=== PATIENT | male | born 1980 | race Two or more races ===

== ENCOUNTER 2019-05-21 19:08 | Emergency (ER) | payer SELFPAY ==
[~2019-05-21] VITALS: Ht 167.6 cm; Wt 110.2 kg
[2019-05-21 19:30] VITALS: BP 189/107
[2019-05-21] MEDS ORDERED: ORPHENADRINE CITRATE 60 MG/2 ML VIAL. IM ONE (19:45)
[2019-05-21] MEDS ORDERED: KETOROLAC 60 MG/2 ML VIAL. IM ONE (19:45)
[2019-05-21] MEDS ORDERED: NAPR-514 PO (20:14)
[2019-05-21] MEDS ORDERED: ORPH100T PO (20:14)
--- NOTE | 2019-05-21 20:14 | PHYS DOC ---
Past Medical History Past Medical History: Hypertension (JOHANNY MONTANEZ APRN) Past Surgical History: No Surgical History (JOHANNY MONTANEZ APRN) Alcohol Use: Occasionally Drug Use: None (JOHANNY MONTANEZ APRN) Adult General Chief Complaint Chief Complaint: LOWER EXT PAIN HPI HPI Patient is a 38 year old male who presents to the emergency Department today with complaints of low back pain that radiates to both of his legs for the last 6 days. He denies any numbness or tingling in his lower extremities or his lower abdomen. He denies any loss of bowel or bladder control. Patient denies any fever, cough, shortness of breath, dysuria, blood in his urine, abnormal penile discharge, abdominal pain, nausea, vomiting, or diarrhea. He states that the pain is a 6 out of 10 at rest and that the pain is exacerbated by movement and shoots to an 8 out of 10 with movement. There have been no alleviating factors. (JOHANNY MONTANEZ APRN) Review of Systems Review of Systems Constitutional: Denies fever or chills [] Eyes: Denies change in redness, or eye pain [] HENT: Denies nasal congestion or sore throat [] Respiratory: Denies cough or shortness of breath [] Cardiovascular: No additional information not addressed in HPI [] GI: Denies abdominal pain, nausea, vomiting, or diarrhea [] : Denies dysuria or hematuria [] Musculoskeletal: see history of present illness Integument: Denies rash or skin lesions [] Neurologic: Denies headache, focal weakness or sensory changes [] Complete systems were reviewed and found to be within normal limits, except as documented in this note. (JOHANNY MONTANEZ APRN) Current Medications Current Medications Current Medications Medications (Trade) Dose Ordered Sig/Fausto Start Time Stop Time Status Last Admin Dose Admin Ketorolac Tromethamine (Toradol Im) 30 mg 1X ONCE 05/21/19 19:45 05/21/19 19:49 DC 05/21/19 20:14 30 MG Orphenadrine Citrate (Norflex) 60 mg 1X ONCE 05/21/19 19:45 05/21/19 19:49 DC 05/21/19 20:14 60 MG (ROCAEL WASHINGTON MD) Allergies Allergies Allergies Coded Allergies Type Severity Reaction Last Updated Verified No Known Drug Allergies 05/21/19 No (ROCAEL WASHINGTON MD) Physical Exam Physical Exam Constitutional: Well developed, well nourished, no acute distress, non-toxic appearance, obese. [] HENT: Normocephalic, atraumatic, bilateral external ears normal, nose normal. [] Eyes: conjunctiva normal, no discharge. [] Neck: Normal range of motion, no stridor. [] Lungs & Thorax: Respirations even and unlabored, no retractions, no respiratory distress Skin: Warm, dry, no erythema, no rash. [] Back: No bony tenderness, no CVA tenderness; bilateral lumbar TTP, increased pain bilateral with straight leg lift Extremities: No cyanosis, ROM intact, no edema. [] Neurologic: Alert and oriented X 3, normal motor function, normal sensory function, no focal deficits noted. [] Psychologic: Affect normal, judgement normal, mood normal. [] (JOHANNY MONTANEZ APRN) Current Patient Data Vital Signs Vital Signs Date Time Temp Pulse Resp B/P (MAP) Pulse Ox O2 Delivery O2 Flow Rate FiO2 05/21/19 19:30 98.2 83 16 189/107 (134) 98 Room Air 98.2 (ROCAEL WASHINGTON MD) EKG EKG [] (JOHANNY MONTANEZ APRN) Radiology/Procedures Radiology/Procedures [] (JOHANNY MONTANEZ APRN) Course & Med Decision Making Course & Med Decision Making Pertinent Labs and Imaging studies reviewed. (See chart for details) [] (JOHANNY MONTANEZ APRN) Course & Med Decision Making Staff Physician Addendum: I was working in the ER during the course of this patient's visit. I was available for consultation as needed, but I was not directly involved in the care of this patient. (ROCAEL WASHINGTON MD) Dragon Disclaimer Dragon Disclaimer This electronic medical record was generated, in whole or in part, using a voice recognition dictation system. (JOHANNY MONTANEZ APRN) Departure Departure Impression: Primary Impression: Sciatica Disposition: 01 HOME, SELF-CARE Condition: STABLE Referrals: NO PCP (PCP) Patient Instructions: Sciatica, Vusn-va-Cmig Additional Instructions: Fill the prescriptions and use as directed. Follow up with your primary care doctor if symptoms persist, return to the ER if symptoms worsen. Scripts Orphenadrine Citrate (ORPHENADRINE CITRATE) 100 Mg Tablet.er 1 TAB PO BID PRN for PAIN for 10 Days, #20 TAB Prov: JOHANNY MONTANEZ APRN 05/21/19 Naproxen (NAPROXEN) 500 Mg Tablet 1 TAB PO BID PRN for PAIN, #60 TAB 0 Refills Prov: JOHANNY MONTANEZ APRN 05/21/19 Problem Qualifiers Primary Impression: Sciatica Laterality: bilateral Qualified Codes: M54.31 - Sciatica, right side; M54.32 - Sciatica, left side JOHANNY MONTANEZ APRN May 21, 2019 20:14 ROCAEL WASHINGTON MD May 22, 2019 04:11
== END 2019-05-21 20:25 | disposition home or self-care (01) ==
LOC: ER 19:08
DX: M54.41 Lumbago with sciatica, right side (principal); M54.42 Lumbago with sciatica, left side; I10 Essential (primary) hypertension
CPT/HCPCS: 96372; 99284; J1885; J2360

== ENCOUNTER 2019-05-27 17:16 | Emergency (ER) | payer SELFPAY ==
[~2019-05-27] VITALS: Ht 167.6 cm; Wt 110.2 kg
[~2019-05-27 17:16] MED LIST: NAPR-514 PO; ORPH100T PO
[2019-05-27] MEDS ORDERED: predniSONE 10 MG TABLET ONE (17:36)
--- NOTE | 2019-05-27 18:17 | RAD ---
AP abdomen x-ray HISTORY: Constipation. FINDINGS: The upper abdomen and lung bases are outside the tnual-fi-[id number]. There is a chronic developmental or healed posttraumatic deformity of the left femur at and extending outside the [id number] along with acetabulum developmental dysplasia. Moderate volume of stool within the colon. At the left abdomen there is a short segment of a dilated gas-filled small bowel loop with a diameter 3.8 cm. IMPRESSION: Moderate volume of stool within the colon. Short segment gas distended small bowel loop of the left upper quadrant could represent focal ileus or early changes of small bowel obstruction. Electronically signed by: Manjit Diaz MD (05/27/2019 6:14 PM) [facility]
--- NOTE | 2019-05-27 18:37 | RAD ---
CT lumbar spine without contrast. CT pelvis without contrast. TECHNIQUE: Helical multiplanar reconstructed noncontrast imaging of the lumbar spine and pelvis was acquired. HISTORY: Lower back pain radiating down the lower extremities. Lumbar spine findings: There is mild levoconvex lumbar scoliosis of the lower lumbar spine. Lumbar vertebral body height and alignment intact. Mild motion artifact at the L1 vertebra may decrease sensitivity to characterize subtle pathology. In light of this there is no fracture of the lumbar spine. No pars defect. No pathologic lytic or sclerotic bone lesion. Paraspinal tissues are unremarkable. Disc disease described below. T12-L1: Disc bulge with annulus osteophyte and facet hypertrophy likely contributes to mild to moderate spinal canal and lateral recess stenoses and mild left neural foraminal stenosis. L1-L2: Unremarkable. L2-L3: Unremarkable. L3-L4: Sizable disc bulge, mild endplate spurring, facet hypertrophy, with probable moderate spinal canal and neural foraminal stenoses. L4-L5: Mild disc height loss, disc bulge with endplate spurring, there is increased density within the spinal canal at this level and effacement of the epidural fat density which could indicate the presence of an ill-defined disc large herniation which could indicate a high degree of spinal canal stenosis, although a intradural mass cannot be excluded for this density, which would be better characterized with MR imaging. There are moderate to severe neural foraminal stenoses as well. L5-S1: Unremarkable. Lumbar spine impression: No acute osseous injury of the lumbar spine. Lumbar disc disease. This is most notable at L4-L5 with a disc bulge and increased soft tissue density effacing the ventral epidural as well as increased density of the central spinal canal which likely indicates the presence of an ill-defined large disc herniation and severe spinal canal stenosis. See discussion above. Pelvis findings: Prominent distention of the bladder could be from chronic outlet obstruction or neurogenic bladder. 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 No acute fracture. No dislocation. Mild osteoarthritic change of the left hip with lateral acetabulum bone cyst and a tiny ossicle at the anterior joint. IMPRESSION: 1. No acute osseous injury of the pelvis. 2. Chronic developmental deformity of the left as described above. 3. Prominent distention of the urinary bladder as described above. Exposure: One or more of the following individualized dose reduction techniques were utilized for this examination: 1. Automated exposure control 2. Adjustment of the mA and/or kV according to patient size 3. Use of iterative reconstruction technique Electronically signed by: Manjit Diaz MD (05/27/2019 6:34 PM) [facility]
[2019-05-27] MEDS ORDERED: HYDROcodone/APAP 5/325MG 1 TAB TABLET PO ONE (19:00)
--- NOTE | 2019-05-27 19:03 | PHYS DOC ---
Past Medical History Past Medical History: Hypertension (NAIDA WANG APRN) Past Surgical History: No Surgical History (NAIDA WANG APRN) Alcohol Use: Occasionally Drug Use: None (NAIDA WANG APRN) Adult General Chief Complaint Chief Complaint: LOWER EXT PAIN HPI HPI Patient is a 38 year old male with history of palpitation who presents to the ED today complaining of 5 out of 10 left hip pain radiating to the left lower extremity, symptoms began 2 weeks ago. Patient states is having trouble bearing weight on the left lower extremity. Patient describes the pain as sharp and c onstant especially on weight bearing. Denies anything specifically relieving the pain. He states he was seen in the ED 2 weeks ago and was sent home with naproxen and a muscle relaxer. He states they are not helping. Patient denies any loss of bowel bladder function. Patient is also complaining of constipation. He states has not had a good bowel movement for 2 weeks. Denies being on any narcotics. Denies taking anything to make him constipated. Denies any nausea vomiting. Interpretation provided by friend for [place], patient understands and speaks some [place]ic (NAIDA WANG APRN) Review of Systems Review of Systems Constitutional: Denies fever or chills [] GI: Denies abdominal pain, nausea, vomiting, bloody stools or diarrhea [] : Denies dysuria or hematuria [] Musculoskeletal: Reports left hip pain. Integument: Denies rash or skin lesions [] Neurologic: Denies headache, focal weakness or sensory changes [] All other systems were reviewed and found to be within normal limits, except as documented in this note. (NAIDA WANG APRN) Current Medications Current Medications Current Medications Medications (Trade) Dose Ordered Sig/Fausto Start Time Stop Time Status Last Admin Dose Admin Acetaminophen/ Hydrocodone Bitart (Lortab 5/325) 2 tab 1X ONCE 05/27/19 19:00 05/27/19 19:01 DC Info (CONTRAST GIVEN -- Rx MONITORING) 1 each PRN DAILY PRN 05/27/19 19:45 05/29/19 19:44 Iohexol (Omnipaque 300 Mg/ml) 75 ml 1X ONCE 05/27/19 19:45 05/27/19 19:46 DC 05/27/19 20:43 75 ML Ketorolac Tromethamine (Toradol 15mg Vial) 15 mg 1X ONCE 05/27/19 20:00 05/27/19 20:01 DC 05/27/19 19:46 15 MG Prednisone (Prednisone) 10 mg STK-MED ONCE 05/27/19 17:36 05/27/19 17:37 DC Sodium Chloride 1,000 ml @ 1,000 mls/hr 1X ONCE 05/27/19 19:30 05/27/19 20:29 DC 05/27/19 19:45 1,000 MLS/HR (JEFFERY TEAGUE APRN) Allergies Allergies Allergies Coded Allergies Type Severity Reaction Last Updated Verified No Known Drug Allergies 05/21/19 No (JEFFERY TEAGUE APRN) Physical Exam Physical Exam Constitutional: Well developed, well nourished, no acute distress, non-toxic appearance. [] HENT: Normocephalic, atraumatic, bilateral external ears normal, oropharynx moist, no oral exudates, nose normal. [] Eyes: PERRLA, EOMI, conjunctiva normal, no discharge. [] Neck: Normal range of motion, no tenderness, supple, no stridor. [] Cardiovascular:Heart rate regular rhythm, no murmur [] Lungs & Thorax: Bilateral breath sounds clear to auscultation [] Abdomen: Rounded distended abdomen Bowel sounds normal, soft, diffuse tenderness throughout the abdomen was on the left lower quadrant, no masses, no pulsatile masses. [] Rectal exam done by the RN in my presence, soft stool noted on the lower rectal region. Skin: Warm, dry, no erythema, no rash. [] Back: Diffuse tenderness to bilateral lumbar spine, no midline lumbar spine tenderness, no CVA tenderness. [] Extremities: Left lower extremity with no obvious gross deformity. Tenderness on palpation of the left lateral hip. Limited range of motion to the left hip due to pain. +2 left pedal pulse. Cap refill less than 2 seconds bilateral lower extremities. Neurologic: Alert and oriented X 3, normal motor function, normal sensory function, no focal deficits noted. [] Psychologic: Affect normal, judgement normal, mood normal. [] (NAIDA WANG APRN) Current Patient Data Vital Signs Vital Signs Date Time Temp Pulse Resp B/P (MAP) Pulse Ox O2 Delivery O2 Flow Rate FiO2 05/27/19 17:32 98.1 97 16 176/96 (122) 97 Room Air 98.1 (JULES TEAGUEToya Ceron APRN) Lab Values Laboratory Tests Test 05/27/19 19:35 05/27/19 21:25 White Blood Count 9.7 x10^3/uL (4.0-11.0) Red Blood Count 5.13 x10^6/uL (4.30-5.70) Hemoglobin 16.4 g/dL (13.0-17.5) Hematocrit 47.4 % (39.0-53.0) Mean Corpuscular Volume 92 fL (79-100) Mean Corpuscular Hemoglobin 32 pg (25-35) Mean Corpuscular Hemoglobin Concent 35 g/dL (31-37) Red Cell Distribution Width 13.1 % (11.5-14.5) Platelet Count 316 x10^3/uL (140-400) Neutrophils (%) (Auto) 58 % (31-73) Lymphocytes (%) (Auto) 28 % (24-48) Monocytes (%) (Auto) 7 % (0-9) Eosinophils (%) (Auto) 6 % (0-3) H Basophils (%) (Auto) 1 % (0-3) Neutrophils # (Auto) 5.7 x10^3uL (1.8-7.7) Lymphocytes # (Auto) 2.8 x10^3/uL (1.0-4.8) Monocytes # (Auto) 0.6 x10^3/uL (0.0-1.1) Eosinophils # (Auto) 0.6 x10^3/uL (0.0-0.7) Basophils # (Auto) 0.1 x10^3/uL (0.0-0.2) Sodium Level 137 mmol/L (136-145) Potassium Level 4.0 mmol/L (3.5-5.1) Chloride Level 99 mmol/L (98-107) Carbon Dioxide Level 26 mmol/L (21-32) Anion Gap 12 (6-14) Blood Urea Nitrogen 22 mg/dL (8-26) Creatinine 1.0 mg/dL (0.7-1.3) Estimated GFR (Cockcroft-Gault) 83.6 BUN/Creatinine Ratio 22 (6-20) H Glucose Level 95 mg/dL (70-99) Calcium Level 9.0 mg/dL (8.5-10.1) Total Bilirubin 0.8 mg/dL (0.2-1.0) Aspartate Amino Transferase (AST) 44 U/L (15-37) H Alanine Aminotransferase (ALT) 71 U/L (16-63) H Alkaline Phosphatase 69 U/L (46-116) Total Protein 9.1 g/dL (6.4-8.2) H Albumin 4.6 g/dL (3.4-5.0) Albumin/Globulin Ratio 1.0 (1.0-1.7) Lipase 235 U/L (73-393) Ethyl Alcohol Level < 10 mg/dL (0-10) Urine Collection Type Unknown Urine Color [place] Urine Clarity Clear Urine pH 5.5 Urine Specific [place] >=1.030 Urine Protein Negative mg/dL (NEG-TRACE) Urine Glucose (UA) Negative mg/dL (NEG) Urine Ketones (Stick) Trace mg/dL (NEG) Urine Blood Negative (NEG) Urine Nitrite Negative (NEG) Urine Bilirubin Small (NEG) Urine Urobilinogen Dipstick 1.0 mg/dL (0.2 mg/dL) Urine Leukocyte Esterase Negative (NEG) Urine RBC 0 /HPF (0-2) Urine WBC 5-10 /HPF (0-4) Urine Squamous Epithelial Cells Mod /LPF Urine Bacteria 0 /HPF (0-FEW) Urine Mucus Slight /LPF Urine Opiates Screen Neg (NEG) Urine Methadone Screen Neg (NEG) Urine Barbiturates Neg (NEG) Urine Phencyclidine Screen Neg (NEG) Urine Amphetamine/Methamphetamine Neg (NEG) Urine Benzodiazepines Screen Neg (NEG) Urine Cocaine Screen Neg (NEG) Urine Cannabinoids Screen Neg (NEG) Urine Ethyl Alcohol Neg (NEG) Laboratory Tests 05/27/19 19:35 Laboratory Tests 05/27/19 19:35 (JEFFERY TEAGUE OUTREACH EDUCATOR) EKG EKG [] (NAIDA WANG APRN) Radiology/Procedures Radiology/Procedures []PROCEDURE: KUB AP abdomen x-ray HISTORY: Constipation. FINDINGS: The upper abdomen and lung bases are outside the [id number]-dk-[id number]. There is a chronic developmental or healed posttraumatic deformity of the left femur at and extending outside the [id number]-wy-srdx along with acetabulum developmental dysplasia. Moderate volume of stool within the colon. At the left abdomen there is a short segment of a dilated gas-filled small bowel loop with a diameter 3.8 cm. IMPRESSION: Moderate volume of stool within the colon. Short segment gas distended small bowel loop of the left upper quadrant could represent focal ileus or early changes of small bowel obstruction. Electronically signed by: Trevon Diaz MD (05/27/2019 6:14 PM) [facility] DICTATED and SIGNED BY: TREVON DIAZ MD DATE: 05/27/191813 PROCEDURE: CT LUMBAR SPINE WO CONTRAST CT lumbar spine without contrast. CT pelvis without contrast. TECHNIQUE: Helical multiplanar reconstructed noncontrast imaging of the lumbar spine and pelvis was acquired. HISTORY: Lower back pain radiating down the lower extremities. Lumbar spine findings: There is mild levoconvex lumbar scoliosis of the lower lumbar spine. Lumbar vertebral body height and alignment intact. Mild motion artifact at the L1 vertebra may decrease sensitivity to characterize subtle pathology. In light of this there is no fracture of the lumbar spine. No pars defect. No pathologic lytic or sclerotic bone lesion. Paraspinal tissues are unremarkable. Disc disease described below. T12-L1: Disc bulge with annulus osteophyte and facet hypertrophy likely contributes to mild to moderate spinal canal and lateral recess stenoses and mild left neural foraminal stenosis. L1-L2: Unremarkable. L2-L3: Unremarkable. L3-L4: Sizable disc bulge, mild endplate spurring, facet hypertrophy, with probable moderate spinal canal and neural foraminal stenoses. L4-L5: Mild disc height loss, disc bulge with endplate spurring, there is increased density within the spinal canal at this level and effacement of the epidural fat density which could indicate the presence of an ill-defined disc large herniation which could indicate a high degree of spinal canal stenosis, although a intradural mass cannot be excluded for this density, which would be better characterized with MR imaging. There are moderate to severe neural foraminal stenoses as well. L5-S1: Unremarkable. Lumbar spine impression: No acute osseous injury of the lumbar spine. Lumbar disc disease. This is most notable at L4-L5 with a disc bulge and increased soft tissue density effacing the ventral epidural as well as increased density of the central spinal canal which likely indicates the presence of an ill-defined large disc herniation and severe spinal canal stenosis. See discussion above. Pelvis findings: Prominent distention of the bladder could be from chronic outlet obstruction or neurogenic bladder. 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 No acute fracture. No dislocation. Mild osteoarthritic change of the left hip with lateral acetabulum bone cyst and a tiny ossicle at the anterior joint. IMPRESSION: 1. No acute osseous injury of the pelvis. 2. Chronic developmental deformity of the left as described above. 3. Prominent distention of the urinary bladder as described above. Exposure: One or more of the following individualized dose reduction techniques were utilized for this examination: 1. Automated exposure control 2. Adjustment of the mA and/or kV according to patient size 3. Use of iterative reconstruction technique Electronically signed by: Trevon Diaz MD (05/27/2019 6:34 PM) [facility] DICTATED and SIGNED BY: TREVON DIAZ MD DATE: 05/27/19 1834 (NAIDA WANG APRN) Impressions: PROCEDURE: CT ABD PELV W/ IV CONTRST ONLY CT abdomen and pelvis with contrast PQRS statement: CT scans at this facility use dose reduction including either automated exposure control, iterative reconstructions, and /or weight based radiation dosing via mA and kV modification when appropriate to reduce radiation dose to as low as reasonably achievable. HISTORY: Ileus. TECHNIQUE: Helical CT imaging abdomen and pelvis with 75 mL Omnipaque 300 intravenous contrast. Abdomen findings: Liver, pancreas, spleen, gallbladder, pancreas, adrenal glands and left kidney unremarkable. Subcentimeter right renal upper pole medullary hypodensity too small to characterize due to volume averaging, statistically most likely small cyst. No obstruction or inflammatory change of the GI tract. Appendix is negative. No abdominal fluid or enlarged adenopathy. Subcentimeter right lower quadrant with enteric lymph nodes likely reactive. The left upper quadrant dilated small bowel loop on the prior x-ray may have been transient distention from air swallowing. Lumbar disc disease as described in the lumbar spine report. Pelvis findings: Marked distention urinary bladder. Prostate and rectum unremarkable. Left hip dysplasia as described in the prior pelvis report. IMPRESSION: No acute process in the abdomen or pelvis. Appendix is negative. No bowel obstruction, see discussion above. Marked distention of the urinary bladder again demonstrated which may indicate neurogenic bladder or chronic outlet obstruction. Electronically signed by: Trevon Diaz MD (05/27/2019 9:20 PM) [facility] (JEFFERY TEAGUE APRN) Course & Med Decision Making Course & Med Decision Making Pertinent Labs and Imaging studies reviewed. (See chart for details) This is a 38-year-old male patient presenting to the ED today with left hip pain radiating to the left lower extremity that began 2 weeks ago, no known injury. Also complaining of constipation for 2 weeks. KUB was done which was noted for possible ileus, possible left hip dysplasia noted on x-ray. CT of the lumbar spine and pelvis was done. CT was negative for any acute symptoms, CT was noted for chronic developmental deformity of the left hip dysplasia. I spoke to patient about this, he states he is aware of his left hip issues. He states he had an injury as a child that resulted 2 left hip dysplasia. I spoke with Dr. Green concerning patient's ileus. He requested we do a CT of the abdomen with contrast. CT pending. 19:42 Transferred to [facility] (NAIDA WANG APRN) Course & Med Decision Making At 2154, I spoke with Dr. Green and discussed CT abdomen and pelvis results chart negative for acute pathology. 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 He agrees for primary care follow-up, we'll send him home with prescription for diclofenac and recommend ice of the extremity. He is neurologically and neurovascularly intact, stable for discharge home. (JEFFERY TEAGUE APRN) Dragon Disclaimer Dragon Disclaimer This electronic medical record was generated, in whole or in part, using a voice recognition dictation system. (NAIDA WANG APRN) Departure Departure Impression: Primary Impression: Constipation Additional Impressions: Hip dysplasia Sciatica Disposition: HOME, SELF-CARE Condition: STABLE Referrals: NO PCP (PCP) Patient Instructions: Dysplasia of the Hip, Developmental, Sciatica Scripts Methylprednisolone (MEDROL) 4 Mg Tab.ds.pk 1 PKG PO UD, #1 PKG Prov: JEFFERY TEAGUE OUTREACH EDUCATOR 05/27/19 Diclofenac Sodium (DICLOFENAC SODIUM) 50 Mg Tablet.dr 50 MG PO BID, #20 TAB Prov: JEFFERY TEAGUE OUTREACH EDUCATOR 05/27/19 Problem Qualifiers Primary Impression: Constipation Constipation type: unspecified constipation type Qualified Codes: K59.00 - Constipation, unspecified SARAYJmNAIDA OUTREACH EDUCATOR May 27, 2019 19:03 JEFFERY TEAGUE OUTREACH EDUCATOR May 27, 2019 21:31
[2019-05-27] MEDS ORDERED: IV NORMAL SALINE 1000ML BAG 1,000 ML IV ONE (19:30)
[2019-05-27] MEDS ORDERED: IOHEXOL 300 MG/ML 100ML VIAL. IV ONE (19:45)
[2019-05-27] MEDS ORDERED: CONTRAST GIVEN. MC PRN (19:45)
[2019-05-27 19:51] LABS: BASO # 0.1 x10^3/uL (0.0-0.2); BASO % 1 % (0-3); EOS # 0.6 x10^3/uL (0.0-0.7); EOS % 6 % (0-3); HEMATOCRIT 47.4 % (39.0-53.0); HEMOGLOBIN 16.4 g/dL (13.0-17.5); LYMPH # 2.8 x10^3/uL (1.0-4.8); LYMPH % 28 % (24-48); MEAN CORPUSCULAR HEMOGLOBIN 32 pg (25-35); MEAN CORPUSCULAR HGB CONC 35 g/dL (31-37); MEAN CORPUSCULAR VOLUME 92 fL (79-100); MONO # 0.6 x10^3/uL (0.0-1.1); MONO % 7 % (0-9); NEUT # 5.7 x10^3uL (1.8-7.7); NEUT % 58 % (31-73); PLATELET COUNT 316 x10^3/uL (140-400); RED BLOOD COUNT 5.13 x10^6/uL (4.30-5.70); RED CELL DISTRIBUTION WIDTH 13.1 % (11.5-14.5); WHITE BLOOD COUNT 9.7 x10^3/uL (4.0-11.0)
[2019-05-27] MEDS ORDERED: KETOROLAC 15 MG/ML VIAL. IV ONE (20:00)
[2019-05-27 20:04] LABS: GFR 83.6
[2019-05-27 20:11] LABS: ALBUMIN 4.6 g/dL (3.4-5.0); TOTAL BILIRUBIN 0.8 mg/dL (0.2-1.0); TOTAL PROTEIN 9.1 g/dL (6.4-8.2)
--- NOTE | 2019-05-27 21:23 | RAD ---
CT abdomen and pelvis with contrast PQRS statement: CT scans at this facility use dose reduction including either automated exposure control, iterative reconstructions, and /or weight based radiation dosing via mA and kV modification when appropriate to reduce radiation dose to as low as reasonably achievable. HISTORY: Ileus. TECHNIQUE: Helical CT imaging abdomen and pelvis with 75 mL Omnipaque 300 intravenous contrast. Abdomen findings: Liver, pancreas, spleen, gallbladder, pancreas, adrenal glands and left kidney unremarkable. Subcentimeter right renal upper pole medullary hypodensity too small to characterize due to volume averaging, statistically most likely small cyst. No obstruction or inflammatory change of the GI tract. Appendix is negative. No abdominal fluid or enlarged adenopathy. Subcentimeter right lower quadrant with enteric lymph nodes likely reactive. The left upper quadrant dilated small bowel loop on the prior x-ray may have been transient distention from air swallowing. Lumbar disc disease as described in the lumbar spine report. Pelvis findings: Marked distention urinary bladder. Prostate and rectum unremarkable. Left hip dysplasia as described in the prior pelvis report. IMPRESSION: No acute process in the abdomen or pelvis. Appendix is negative. No bowel obstruction, see discussion above. Marked distention of the urinary bladder again demonstrated which may indicate neurogenic bladder or chronic outlet obstruction. Electronically signed by: Manjit Diaz MD (05/27/2019 9:20 PM) [facility]
[2019-05-27 21:38] LABS: BILIRUBIN,URINE SMALL (NEG); CLARITY,URINE CLEAR; COLOR,URINE AMBER; NITRITE,URINE NEGATIVE (NEG); PH,URINE 5.5; PROTEIN,URINE NEGATIVE (NEG-TRACE)
[2019-05-27 21:44] LABS: SQUAMOUS EPITHELIAL CELL,UR MOD /LPF
[2019-05-27 21:45] LABS: BACTERIA,URINE 0 /HPF (0-FEW); BARBITURATES NEG (NEG); BENZODIAZEPINES NEG (NEG); CANNABINOIDS NEG (NEG); COCAINE NEG (NEG); METHADONE NEG (NEG); OPIATES NEG (NEG); PHENCYCLIDINE NEG (NEG); RBC,URINE 0 /HPF (0-2)
[2019-05-27 21:46] LABS: AMPHETAMINE/METHAMPHETAMINE NEG (NEG)
[2019-05-27] MEDS ORDERED: DICL50TA4 PO (21:59)
[2019-05-27] MEDS ORDERED: METH4TAB2 PO (21:59)
[2019-05-27 22:31] VITALS: BP 146/95
== END 2019-05-27 22:31 | disposition home or self-care (01) ==
LOC: ER 17:16
DX: K59.00 Constipation, unspecified (principal); Q65.89 Other specified congenital deformities of hip; M54.42 Lumbago with sciatica, left side; I10 Essential (primary) hypertension
CPT/HCPCS: 36415; 72131; 72192; 74018; 74177; 80053; 80307; 81001; 83690; 85025; 96374; 99285; G0480; J1885; J7030; Q9967